=== PATIENT | female | born 1965 | race Caucasian/White ===

== ENCOUNTER 2018-08-27 11:11 | Emergency (ER) | payer OTHER ==
[~2018-08-27] VITALS: Ht 162.6 cm; Wt 96.2 kg
[~2018-08-27 11:11] MED LIST: AMOX1TAB12 PO; CALCITRIOL0.5 MCG; INTESTINEX680 MG PO; LOSARTAN POTAS100 MG; OXYC1TAB9 PO; PROTONIX40 MG PO; SYNTHROID150 MCG; SYNTHROID175 MCG
== END 2018-08-27 20:42 | disposition home or self-care (01) ==
LOC: ER 11:11
DX: N21.0 Calculus in bladder (principal); N39.0 Urinary tract infection, site not specified; R53.81 Other malaise

== ENCOUNTER → 2018-08-28 | Outpatient (CLI) | payer OTHER | END | disposition home or self-care (01) | LOC: LAB 16:12 | DX: N17.8 Other acute kidney failure (principal); E03.8 Other specified hypothyroidism ==

== ENCOUNTER 2019-09-03 06:52 | Day surgery (SDC) | payer OTHER | END 2019-09-03 11:15 | disposition home or self-care (01) | LOC: AMB-ENDOS 06:52 | DX: D12.0 Benign neoplasm of cecum (principal); D12.2 Benign neoplasm of ascending colon; K57.30 Diverticulosis of large intestine without perforation or abscess without bleeding ==

== ENCOUNTER 2020-05-01 13:46 | Outpatient (CLI) | payer OTHER | END 2020-05-01 13:56 | disposition home or self-care (01) | LOC: MAMO-SONO 13:46 | PROVIDERS: ATTEND Obstetrics & Gynecology | DX: Z12.31 Encounter for screening mammogram for malignant neoplasm of breast (principal); N60.19 Diffuse cystic mastopathy of unspecified breast ==

== ENCOUNTER 2020-08-07 10:47 | Emergency (ER) | payer OTHER ==
[~2020-08-07] VITALS: Ht 162.6 cm; Wt 99.8 kg
[2020-08-07] MEDS ORDERED: SYNTHROID137 MCG ×2 (11:18→11:19)
[2020-08-07] MEDS ORDERED: IRBESARTAN150 MG (11:19)
== END 2020-08-07 16:03 | disposition home or self-care (01) ==
LOC: ER 10:47
DX: R42 Dizziness and giddiness (principal); R51 Headache